=== PATIENT | male | born 1950 | race Caucasian/White ===

== ENCOUNTER 2020-09-17 06:45 | Day surgery (SDC) | payer MEDICARE, MEDICAID ==
[~2020-09-17] VITALS: Ht 172.7 cm; Wt 67.9 kg
[2020-09-17] VITALS (8 sets, daily range): BP systolic 143–214; BP diastolic 83–101
[2020-09-17] MEDS ORDERED: normal saline 1,000 ML IV SCH (07:25)
[2020-09-17] MEDS ORDERED: PREG50CA PO (07:37)
[2020-09-17] MEDS ORDERED: LINA5TAB4 PO (07:37)
[2020-09-17] MEDS ORDERED: heparin 1,000unit/ml 10ml vial 10 ML ONE (08:18)
[2020-09-17] MEDS ORDERED: LIDOcaine 1%/PF 5ML 10 MG/ML VIAL ONE (08:19)
[2020-09-17 08:28] LABS: BASOPHILS % (AUTO) 0.7 % (0-1); EOSINOPHILS # (AUTO) 0.3 X10'3 (0-0.9); EOSINOPHILS % (AUTO) 4.9 % (0-6); HEMATOCRIT 38.6 % (42.0-52.0); HEMOGLOBIN 12.8 g/dl (14.0-17.9); LYMPHOCYTES # (AUTO) 1.4 X10'3 (1.1-4.8); LYMPHOCYTES % (AUTO) 26.4 % (21-51); MEAN CORPUSCULAR HEMOGLOBIN 32.2 PG (27.0-31.0); MEAN CORPUSCULAR HGB CONC 33.2 g/dL (33.0-36.5); MEAN CORPUSCULAR VOLUME 96.8 FL (78-98); MEAN PLATELET VOLUME 8.1 FL (7.4-10.4); MONOCYTES # (AUTO) 0.5 X10'3 (0-0.9); MONOCYTES % (AUTO) 9.6 % (2-12); NEUTROPHILS # (AUTO) 3.2 X10'3 (1.8-7.7); NEUTROPHILS % (AUTO) 58.4 % (42-75); PLATELET COUNT 179 X10'3 (140-440); RED BLOOD COUNT 3.99 X10'6 (4.70-6.10); RED CELL DISTRIBUTION WIDTH 14.9 % (11.5-14.5); WHITE BLOOD COUNT 5.5 X10'3 (4.5-11.0)
--- NOTE | 2020-09-17 08:33 | NUR ---
Pt left unit for procedure.
[2020-09-17] MEDS ORDERED: midazolam 1 mg/ML 2ml injection ONE (08:35)
[2020-09-17] MEDS ORDERED: fentaNYL/PF 50MCG/1 ML 2ML syringe ONE (08:36)
--- NOTE | 2020-09-17 10:27 | NUR ---
Contacted MD, pt BP 200/91, pt site bleeding, pressure applied and now bleeding has stopped. New order given. Will continue to monitor.
[2020-09-17] MEDS ORDERED: hydrALAZINE 20mg/ml inj. IV ONE (10:30)
== END 2020-09-17 11:50 | disposition home or self-care (01) ==
LOC: SSTAY O 06:45
PROVIDERS: ATTEND Radiology Diagnostic Radiology
DX: T82.868A Thrombosis due to vascular prosthetic devices, implants and grafts, initial encounter (principal); N18.9 Chronic kidney disease, unspecified; Z79.899 Other long term (current) drug therapy; Y83.8 Other surgical procedures as the cause of abnormal reaction of the patient, or of later complication, without mention of misadventure at the time of the procedure; Y92.89 Other specified places as the place of occurrence of the external cause
CPT/HCPCS: 36415; 36558; 36589; 76937; 77001; 82948; 85025; 99152; C1750; C1769; C1894; J0360; J1644; J2250; J3010; J7030; A9270